=== PATIENT | female | born 1960 ===

== ENCOUNTER 2024-06-26 05:53 | Day surgery (SDC) | payer OTHER ==
[2024-06-20 09:45] VITALS: BP 132/61
[2024-06-20 09:58] LABS: PH,URINE 5.5 (5.0-8.0); URINE APPEARANCE Clear; URINE BILIRRUBIN Negative (NEGATIVE); URINE BLOOD Negative; URINE COLOR Yellow; URINE GLUCOSE Negative (NEGATIVE); URINE KETONE Negative (NEGATIVE); URINE LEUKOCYTE Negative; URINE NITRATE Negative; URINE PROTEIN Negative (NEGATIVE); URINE UROBILINOGEN 0.2 E.U./dl
[2024-06-20 09:59] LABS: URINE BACTERIA 23.2 uL (0.0-1933); URINE EPITHELIAL CELLS 5.2 uL (0.0-38.8); URINE RBC 10.1 uL (0.0-20.8); URINE WBC 10.2 uL (0.0-23.2)
[2024-06-20 10:03] LABS: HEMATOCRIT 35.1 % (36.0-45.00); HEMOGLOBIN 11.8 g/dL (12.0-15.00); MEAN CELL VOLUME 89.9 fL (80.00-100.00); MEAN CORPUSCULAR HEMOGLOBIN 30.2 pg (27.00-32.0); MEAN CORPUSCULAR HGB CONC 33.6 g/dl (32.0-36.0); PLATELET COUNT 178 K/uL (150-450); RED CELL DISTRIBUTION WIDTH 14.3 % (11.5-14.5)
[2024-06-20 10:27] LABS: PROTHROMBIN TIME 10.9 SECONDS (9.0-11.5)
[2024-06-20 10:42] LABS: ALBUMIN 3.7 gm/dL (3.4-5.0); BILIRUBIN TOTAL 0.39 mg/dL (0.3-1.2); CALCIUM 9.2 mg/dL (8.5-10.1); CREATININE SERUM 0.79 mg/dL (0.55-1.02); GFR 73.5; GLOBULINA 3.3 G/DL (2.4-3.5); POTASSIUM 4.53 mEq/L (3.5-5.1)
[2024-06-20 10:59] LABS: COVID-19 AG NEGATIVE (NEGATIVE)
[~2024-06-26] VITALS: Ht 162.6 cm; Wt 52.6 kg
[~2024-06-26 05:53] MED LIST: CARVEDILOL3.125 MG; CLONAZEPAM0.5 MG PO; FLUOXETINE HCL60 MG; GRALISE600 MG; JENTADUETO 2.51 EACH PO; PEPCID40 MG PO; SYNTHROID75 MCG PO; ZESTRIL2.5 MG PO
[2024-06-26] MEDS ORDERED: EPINEPHRINE HCL/PF 1 MG/ML AMPUL ONE (10:36)
[2024-06-26] MEDS ORDERED: POVIDONE-IODINE SCRUB 118 ML BOTT TOP ONE (10:36)
[2024-06-26] MEDS ORDERED: POVIDONE-IODINE 118 ML BOTT TOP ONE (10:36)
[2024-06-26] MEDS ORDERED: LIDOCAINE HCL 1%/EPINEPHRINE 20ML VIAL IJ ONE ×2 (10:37→11:30)
[2024-06-26] MEDS ORDERED: CEFAZOLIN SODIUM 1,000 MG VIAL ONE (10:46)
[2024-06-26] MEDS ORDERED: CIPROFLOXACIN HCL 0.175 MG/DR DROPS OP ONE (11:30)
[2024-06-26] MEDS ORDERED: BACITRACIN 28.35 GM OINT.TUBE TOP ONE (11:30)
[2024-06-26] MEDS ORDERED: EPINEPHRINE HCL/PF 1 MG/ML AMPUL IR ONE (11:30)
[2024-06-26] MEDS ORDERED: MORPHINE SULFATE 4 MG/ML VIAL IV ONE (13:50)
[2024-06-26] MEDS ORDERED: MEPERIDINE HCL/PF 25 MG/ML VIAL IM PRN (14:00)
[2024-06-26] MEDS ORDERED: PROMETHAZINE HCL 25 MG/ML AMPUL IM PRN (14:00)
== END 2024-06-26 15:25 | disposition home or self-care (01) ==
LOC: CIR.AMB 05:53
PROVIDERS: Surgery; ATTEND Otolaryngology Otology & Neurotology
DX: H65.21 Chronic serous otitis media, right ear (principal); H72.91 Unspecified perforation of tympanic membrane, right ear; S01.301A Unspecified open wound of right ear, initial encounter; H61.811 Exostosis of right external canal; D68.9 Coagulation defect, unspecified; Z03.818 Encounter for observation for suspected exposure to other biological agents ruled out; Z88.6 Allergy status to analgesic agent; Z88.5 Allergy status to narcotic agent; I10 Essential (primary) hypertension; E11.9 Type 2 diabetes mellitus without complications; E03.8 Other specified hypothyroidism; M19.90 Unspecified osteoarthritis, unspecified site; F41.8 Other specified anxiety disorders; G62.9 Polyneuropathy, unspecified